=== PATIENT | male | born 1970 | race Caucasian/White ===

== ENCOUNTER 2024-11-28 08:05 | Day surgery (SDC) | payer BC, SELFPAY ==
[2024-11-28] VITALS (11 sets, daily range): BP systolic 113–142; BP diastolic 56–89; PULSE 68–82; RESP 12–16; TEMP 36.1–36.6; O2SAT 91–99; BMI 36.3
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
--- OUTSIDE RECORDS SUMMARY | 2024-11-28 08:11 | XMS_ITS | Clinical Summary ---
Author Organization [facility] Address [place], [place] [address] Care Team Providers Care Loss Prevention Coordinator Name Role Phone Sofie Sheilds DO Primary Care Provider [phone] Ton Chris MD Unavailable Allergies Active Allergy Reactions Criticality Noted Date Comments Cefuroxime Hives 06/26/2012 Penicillins Rash 02/14/2009 Medications cetirizine (ZYRTEC) 10 mg tabletIndications: Multiple environmental allergies Take 1 tablet by mouth once daily. 90 tablet 1 02/12/20 16 Active ascorbic acid, vitamin C, (VITAMIN C) 1,000 mg tablet Take 1 tablet by mouth once daily. 0 04/22/20 19 Active glucosam-chondroit -C-manganese 500-400-2-0.33 mg cap Take 1 capsule by mouth once daily. 0 04/22/20 19 Active aspirin (ECOTRIN) 81 mg enteric coated tabletIndications: Controlled type 2 diabetes mellitus without complication, without long-term current use of insulin (HC) Take 1 Tablet (81 mg) by mouth once daily with a meal. 0 03/18/20 21 Active lancets (OneTouch Delica Plus Lancet) 30 gauge miscIndications:Co ntrolled type 2 diabetes mellitus without complication, without long-term current use of insulin (HC) As directed. Dispense item covered by pt ins. E11.65 NIDDM type II, uncontrolled - Test 2 times/day. Reason: New diabetes 100 Each 04/21/20 21 Active BiPapIndications:O SA (obstructive sleep apnea) replacement bPAP machine for home use at pressure: auto Epap 5 Max Ipap 23 PS 5, Heated humidifier x 1 q 5 yr, Humidifier chamber x 1 q 6 mo, nasal mask x1 q 3mos, with pillows x 2 q mo, Heated tubing x 1 q 3 mo, Headgear x 1 q 6 mo, Filters: Disposable x 2 q mo non-disposable filters x1 q 6mo, Length of Need: 99 months, Frequency of use: Daily 11/09/20 23 Active rosuvastatin (CRESTOR) 10 mg tabletIndications: Hyperlipidemia, unspecified hyperlipidemia type Take 1 Tablet (10 mg) by mouth at bedtime. 90 Tablet 3 02/14/20 24 Active lisinopriL (PRINIVIL; ZESTRIL) 20 mg tabletIndications: HTN (hypertension) Take 1 Tablet (20 mg) by mouth once daily. 90 Tablet 3 02/14/20 24 Active zinc gluconate 50 mg tablet Take 50 mg by mouth once daily. Active metFORMIN (GLUCOPHAGE XR) 500 mg Extended-Release tabletIndications: Controlled type 2 diabetes mellitus without complication, without long-term current use of insulin (HC) TAKE 4 TABLETS ONCE DAILY WITH EVENING MEAL 360 Tablet 09/10/20 24 Active blood sugar diagnostic (OneTouch Verio test strips) stripIndications:C ontrolled type 2 diabetes mellitus without complication, without long-term current use of insulin (HC) Dispense item covered by pt ins. E11.65 NIDDM type II, uncontrolled - Test 2 times/day, Reason: New diabetes 100 Each 6 11/06/20 24 Active blood sugar diagnostic (OneTouch Verio test strips) stripIndications:C ontrolled type 2 diabetes mellitus without complication, without long-term current use of insulin (HC) Dispense item covered by pt ins. E11.65 NIDDM type II, uncontrolled - Test 2 times/day, Reason: New diabetes 100 Each 6 02/16/20 23 024 Discontin ued(Reord er (E-cancel not sent)) cinnamon bark (CINNAMON ORAL) Take by mouth. 11/06 024 Discontin ued(*Med complete/ Regimen complete/ Level of care change) Active Problems Problem Noted Date Diagnosed Date Type 2 diabetes mellitus wit hout complication, without long-term current use of insulin 02/14/2024 Adenomatous colon polyp 06/14/2019 Overview (03/17/2021): Colonoscopy 05/2019 large 4 cm rectal polyp, repeat in 6 months at hospital Colonoscopy 02/2021 1 polyp, repeat in 5 years RUSS 09/18/2014 AHI-87 09/26/2014 Epidermal cyst 07/10/2012 Elevated BP 07/10/2012 Encounters Date Type Department Care Team Description 11/06/2024 10:10 AM EYEDOTTER Preop Visit [facility] [address] [place] [address] Sofie Shields, Preoperative Exam (11/28/24 - [facility] - Dr. Gresham - Umbilical hernia repair) 11/05/2024 Travel 11/04/[address] [address] Mary Gresham MD Form (Unum form ) 09/27/[address] [address] Mary Gresham MD order needed 09/26/[address] [address] Mary Gresham MD Appointment (Surgery ) 09/08/2024 Refill [facility] [address] [place] [address] Sofie Shields, Refill Request (Metformin) from Last 3 Months Immunizations Name Administration Dates Next Due Influenza, IIV3 (Age >=3 years) 09/04/2006 Pneumococcal Poly,23-Valent (Pneumovax) 12/29/19 22 Tdap 08/31/2021,06/26/2012 Zoster (Shingrix-RZV, recombinant) 07/01/2019, Family History Medical History Relation Name Comments Other Maternal Grandfather aneurys m Cancer-breast Maternal Grandmother Valvular heart disease Maternal Uncle Cancer-breast Mother Other Mother lymphoma Heart attack Paternal Uncle Relation Name Status Comments Maternal Grandfather Maternal Grandmother Maternal Uncle Mother Paternal Uncle Alive Social History Tobacco Use Types Packs/Day Years Used Date Smoking Tobacco: Never Smokeless Tobacco: Never Tobacco Cessation:Counseling Given: Yes Alcohol Use Standard Drinks/Week Comments Yes 0 (1 standard drink = 0.6 oz pur e alcohol) 2 drinks per month PHQ-2 Answer Date Recorded PHQ-2 TOTAL SCORE 0 08/16/2023 Financial Resource Strain Answer Date R ecorded Difficulty of Paying Living Expenses Not on file 11/20/2021 Difficulty of Paying Living Expenses Not on file 11/20/2021 Sex and Gender Information Value Date Recorded Sex Assigned at Male 09/03/2023 12:01 PM CDT Legal Sex Male 6:42 AM EYEDOTTER Gender Identity Not on file Sexual Orientation Not on file Obstetrics History Last Filed Vital Signs Vital Sign Reading Time Taken Comments Blood Pressure 125/77 11/06/2024 10:14 AM EYEDOTTER Pulse 75 11/06/2024 10:14 AM EYEDOTTER Temperature 36.7 C (98 F) 01/26/2022 3:57 PM EYEDOTTER Respiratory Rate - - Oxygen Saturation 96% 11/06/2024 10: 14 AM EYEDOTTER Inhaled Oxygen Concentration - - Weight 111.6 kg (246 lb 1.6 oz) 024 10:14 AM EYEDOTTER Height 172.6 cm (5' 7.95) 02/14/2024 4:04 PM CD T Body Mass Index 37.47 02/14/2024 4:04 PM CDT Plan of Treatment Health Maintenance Due Date Last Done Comments HIV for age 15-65 1983 Hepatitis C screening for ag e 18-79 1986 Hepatitis B series for Diabe robert (1 of 3 - 19+ 3-dose series) 1987 Pneumococcal series for age 50+ (2 of 2 - PCV) 12/29/2022 12/29/2021 COVID-19 vaccine series ( season) 2024 Influenza for age 50-64 07/21/2024 09/04/2006 Depression screening for age 12+ 08/16/2024 08/16/2023, 02/19/2021, 02/19/2021, Additional history exists BMI (ht and wt on same day) for age 18+ 02/13/2025 02/14/2024, 03/18/2021, 09/16/2020, Additional history exists Colonoscopy through age 75 03/15/202603/15, 03/15/2021, 03/15/2021, Additional history exists Lipids for age 45-75 02/13/2029 02/14/2024, 02/14/2024, 02/15/2023, Additional history exists Tetanus booster 08/31/2031 08/31/2021, 06/26/2012 Zoster (shingles) series for age 50+ Completed 07/01/2019, 04/22/2019 Tdap Completed 08/31/2021, 06/26/2012 Procedures Procedure Name Priority Date/Time Associated Diagnosis Comments BASIC METABOLIC PANEL Routine 11/06/2024 10:42 AM EYEDOTTER Pre-op exam HEMOGLOBIN A1C MONITORING (POCT) Routine 11/06/2024 10:41 AM EYEDOTTER Type 2 diabetes mellitus without complication, without long-term current use of insulin (HC) LIPID PANEL W REFLEX MEASURED LDL Routine 02/14/2024 3:57 PM CDT Hyperlipidemia, unspecified hyperlipidemia type COLONOSCOPY SCREENING Routine 03/15/2021 8:00 AM CDT History of colon polyps from Last 3 Months or Most Recently Relevant to Health Maintenance Results * (ABNORMAL) BASIC METABOLIC PANEL (11/06/2024 10:42 AM EYEDOTTER) GLUCOSE 147(H) 65 - 99 mg/dL [facility] Comment: Fasting reference interval For someone without known diabetes, a glucose value >125 mg/dL indicates that they may have diabetes and this should be confirmed with a follow-up test. UREA NITROGEN (BUN) 21 7 - 25 mg/dL [facility] CREATININE 1.03 0.70 - 1.30 mg/dL [facility] EGFR 86 > OR = 60 mL/min/1. 73m2 [facility] BUN/CREATININE RATIO SEE NOTE: 6 - 22 (calc) [facility] Comment: Not Reported: BUN and Creatinine are within reference range. SODIUM 140 135 - 146 mmol/L [facility] POTASSIUM 4.4 3.5 - 5.3 mmol/L [facility] CHLORIDE 105 98 - 110 mmol/L [facility] CARBON DIOXIDE 26 20 - 32 mmol/L [facility] ELECTROLYTE BALANCE 9 7 - 17 mmol/L (calc) [facility] CALCIUM 9.5 8.6 - 10.3 mg/dL [facility] Blood BLOOD SPECIMEN / Unknown 11/06/2024 10:42 AM EYEDOTTER 11/06/2024 10:49 AM EYEDOTTER [employer] DO CHEMISTRY Final Result Performing Organization Address City/[facility]/ZIP Co de Phone Number [employer] [facility] [address] [place] [address], [place] [phone] [facility] [address] [place] [address] * (ABNORMAL) HEMOGLOBIN A1C MONITORING (POCT) (11/06/2024 10:41 AM EYEDOTTER) POC HEMOGLOBIN A1C 6.3(H) <6.0 % OF TOTAL HGB [facility] Comment: Any point of care results exhibiting inconsistency with the patient's clinical status should be repeated using a different testing method. Blood BLOOD SPECIMEN / Unknown 11/06/2024 10:41 AM EYEDOTTER 11/06/2024 10:41 AM EYEDOTTER [employer] DO CHEMISTRY Final Result [facility] [address] [place] [address], [place] [phone] [facility] [address] [place] [address] * (ABNORMAL) LIPID PANEL W REFLEX MEASURED LDL (02/14/2024 3:57 PM CDT) CHOLESTEROL,TOTAL 165 100 - 199 mg/dL 02/14/2024 9:14 PM CDT [facility] Comment: Cholesterol, Total Reference Ranges Desirable <200 mg/dL Borderline 200-239 mg/dL High >=240 mg/dL TRIGLYCERIDES 415(H) <150 mg/dL 02/14/2024 9:14 PM CDT [facility] HDL CHOLESTEROL 41 >40 mg/dL 4 9:14 PM CDT [facility] NON-HDL CHOLESTEROL 124 <145 mg/dl 02/14/2024 9:14 PM CDT [facility] CHOL/HDL RATIO 4.02 <4.50 02/14/2024 9:14 PM CDT [facility] LDL CHOLESTEROL 4 9:14 PM CDT [facility] Comment:Invalid LDL when Tri g >400. VLDL CHOLESTEROL COMMENT 02/14/2024 9:14 PM CDT [facility] Comment:Unable to calculate VLDL. PROVIDER ORDERED STATUS RANDOM 02/14/2024 9:14 PM CDT [facility] Blood BLOOD SPECIMEN / Unknown Venipuncture / Unknown 02/14/2024 3:57 PM CDT 02/14/2024 3:57 PM CDT us Sofie Shields DO CHEMISTRY Final Result [facility] [address] [place] [address], [place] * SCAN-COLONOSCOPY (03/15/2021 12:00 AM CDT) us Scanner OTHER Final Result from Last 3 Months or Most Recently Relevant to Health Maintenance Insurance [facility] Care Teams Loss Prevention Coordinator Relationship Specialty Start Date End Date Sofie Shields DO [address] [place] [address] PCP - General Family Practice 02/15/23 Ton Chris MD [address] [place] [address] Sleep Medicine 10/19/23
[2024-11-28] MEDS: 0.9 % SODIUM CHLORIDE 500 ML 500 ML 100 ML IV (09:15)
[2024-11-28] MEDS: SODIUM CHLORIDE 0.9 % (FLUSH) 10 ML SYRINGE IVF (09:15)
--- NOTE | 2024-11-28 09:51 | W.PM.H&PU ---
History & Physical Update History & Physical Update H&P Reviewed and patient assessed: No changes noted
--- NOTE | 2024-11-28 09:51 | PM.GSPRC ---
Operative Note Date of procedure: 11/28/24 Pre-op diagnosis: Reducible umbilical hernia Post-op diagnosis: Same Type of Procedure: Open primary repair reducible 1 cm umbilical hernia. Indications: The patient is a 53-year-old male who presented to clinic with an umbilical hernia that had been giving him increasing discomfort. After discussion of risks and benefits he elected to proceed with repair. Procedure Description: After discussing the risks and benefits of the procedure, the patient signed informed consent.? The operative site was marked and the patient was brought to the operating room and placed on the operating table in supine position.? Care was taken to pad the patient's pressure points.?? The patient was then intubated by anesthesia.?? The operative site was then prepped and draped in the usual sterile fashion.? A time-out was then performed. Local anesthetic was injected into the fascia, skin and subcutaneous tissues below the umbilicus. A curvilinear incision was made at the inferior aspect of the umbilicus. Dissection was carried down into the subcutaneous tissue using cautery. The hernia sac was encountered and the umbilical stalk was carefully dissected off of the herniated tissue. This was found to be herniated preperitoneal fat. This was able to be reduced. The fascial edges were identified and the fascial opening was 1 cm in diameter. Because of the small size, the decision was made to close this primarily. 0 Nurolon suture was used to close the fascial in an interrupted [id number] fashion. Once this was done, the umbilicus was reapproximated to the fascia. The skin was then closed with running absorbable suture. A sterile dressing was then applied. ? The patient was then woken and transported to the recovery area in stable condition. ? The patient tolerated the procedure well. Findings: 1 cm preperitoneal fat-containing umbilical hernia. Anesthesia: GETA Surgeon: Mary Gresham MD Estimated blood loss (mL): 1 Condition: stable Disposition: PACU
--- NOTE | 2024-11-28 09:52 | P.ANES_ITS ---
Anesthesia Charges Start Date/Time Anesthesia Start Date: 11/28/24 Anesthesia Start Time: 09:39 Stop Date/Time Anesthesia Stop Date: 11/28/24 Anesthesia Stop Time: 10:48 Coding CPT Codes CPT Codes: ANESTH REPAIR OF HERNIA - 10026 ([id number]) P2 - PATIENT W/MILD SYST DISEASE, QK - PHOTOGRAPHIC HAND DEVELOPER 2-4 CNCRNT ANES PROC, QX - FARO DEALER SVC W/ MD MED DIRECTION
--- NOTE | 2024-11-28 09:52 | W.ANESCHARGE ---
Anesthesia Charges Start Date/Time Anesthesia Start Date: 11/28/24 Anesthesia Start Time: 09:39 Stop Date/Time Anesthesia Stop Date: 11/28/24 Anesthesia Stop Time: 10:48 Coding CPT Codes CPT Codes: ANESTH REPAIR OF HERNIA - 69252 ([id number]) P2 - PATIENT W/MILD SYST DISEASE, QK - PAPER MACHINE SUPERVISOR 2-4 CNCRNT ANES PROC, QX - RESOLUTION AGENT SVC W/ MD MED DIRECTION
[2024-11-28] MEDS: CLINDAMYCIN 900 MG/50 ML-D5W IVPB (09:54)
--- NOTE | 2024-11-28 12:23 | P.ANES_ITS ---
Anesthesia Charges Start Date/Time Anesthesia Start Date: 11/28/24 Anesthesia Start Time: 09:39 Stop Date/Time Anesthesia Stop Date: 11/28/24 Anesthesia Stop Time: 10:48 Coding CPT Codes CPT Codes: ANESTH REPAIR OF HERNIA - 77780 ([id number]) QK - MATHEMATICIAN RESEARCH 2-4 CNCRNT ANES PROC, QX - BATTERY TECHNICIAN SVC W/ MD MED DIRECTION, P2 - PATIENT W/MILD SYST DISEASE
--- NOTE | 2024-11-28 12:23 | W.ANESCHARGE ---
Anesthesia Charges Start Date/Time Anesthesia Start Date: 11/28/24 Anesthesia Start Time: 09:39 Stop Date/Time Anesthesia Stop Date: 11/28/24 Anesthesia Stop Time: 10:48 Coding CPT Codes CPT Codes: ANESTH REPAIR OF HERNIA - 70365 ([id number]) QK - RIBBON WEAVER 2-4 CNCRNT ANES PROC, QX - COOK SOUP SVC W/ MD MED DIRECTION, P2 - PATIENT W/MILD SYST DISEASE
== END 2024-11-28 12:20 | disposition home or self-care (01) ==
PROVIDERS: PCP Family Medicine; Visit Provider Surgery
PROC: (CPT 49591; principal; 2024-11-28 09:30)
DX: K42.9 Umbilical hernia without obstruction or gangrene (principal); E11.9 Type 2 diabetes mellitus without complications
CPT/HCPCS: 49591; 00750; 00830; 82962; A4467; J0330; J0736; J1100; J2250; J2371; J2405; J2704; J3010; J3490; J7030

== ENCOUNTER 2025-11-04 07:14 | Outpatient (CLI) | payer BC, SELFPAY | END 2025-11-04 07:15 | disposition home or self-care (01) | LOC: INJ CL 07:15 | PROVIDERS: PCP Family Medicine; Visit Provider Family Medicine | DX: M54.16 Radiculopathy, lumbar region (principal); M51.26 Other intervertebral disc displacement, lumbar region | CPT/HCPCS: 62323; J0702; Q9966 ==